=== PATIENT | male | born 1995 | race American Indian/Alaskan Native ===

== ENCOUNTER 2018-11-02 13:52 | Emergency (ER) | payer SELFPAY ==
[2018-11-02] MEDS ORDERED: CLEOCIN 900 MG/50 mL 900 MG/50 ML BAG IV ONE (15:33)
[2018-11-02] MEDS ORDERED: MORPHINE IV ONE (15:48)
[2018-11-02] MEDS ORDERED: NACL 0.9% 1000 ML 1,000 ML IV ONE (15:48)
[2018-11-02 16:16] LABS: Hematocrit 40.4 % (35.5-45.6); Hemoglobin 12.9 gm/dl (11.8-15.2); Mean Corpuscular HGB Conc 32 % (32-34); Mean Corpuscular Hemoglobin 27 pg (28-32); Mean Corpuscular Volume 85 fl (84-94); Platelet Count 313 K/mm3 (140-440); Red Blood Count 4.75 M/mm3 (3.65-5.03); Red Cell Distribution Width 16.7 % (13.2-15.2)
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
[2018-11-02 16:28] VITALS: BP 126/69
[2018-11-02] MEDS ORDERED: DILAUDID IV ONE (16:33)
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
[2018-11-02 19:02] LABS: Total Cells Counted 100
[2018-11-02 19:04] LABS: Platelet Estimate Consistent w Auto
== END 2018-11-02 17:35 | disposition other institution (70) ==
LOC: ED 13:52
DX: S02.609A Fracture of mandible, unspecified, initial encounter for closed fracture (principal); S02.92XA Unspecified fracture of facial bones, initial encounter for closed fracture; K50.90 Crohn's disease, unspecified, without complications; Y04.2XXA Assault by strike against or bumped into by another person, initial encounter; Y93.89 Activity, other specified; Y99.8 Other external cause status; Y92.89 Other specified places as the place of occurrence of the external cause
CPT/HCPCS: 36415; 70450; 70486; 85007; 85025; 86850; 86900; 86901; 96365; 96375; 99285; J1170; J2270; J7030